=== PATIENT | male | born 1980 | race Two or more races ===

== ENCOUNTER 2019-08-11 07:48 | Emergency (ER) | payer OTHER ==
[~2019-08-11] VITALS: Ht 170.2 cm; Wt 95.3 kg
[2019-08-11] MEDS ORDERED: ENALAPRIL MALEAT5 MG (09:32)
[2019-08-11] MEDS ORDERED: AMOX-CLAV 875-1 EACH PO (10:39)
[2019-08-11] MEDS ORDERED: INTESTINEX680 M1 PO (10:39)
== END 2019-08-11 11:09 | disposition home or self-care (01) ==
LOC: ER 07:48
DX: S61.250A Open bite of right index finger without damage to nail, initial encounter (principal); L03.011 Cellulitis of right finger; W54.0XXA Bitten by dog, initial encounter; Y93.89 Activity, other specified; Y92.89 Other specified places as the place of occurrence of the external cause; Y99.8 Other external cause status

== ENCOUNTER 2020-01-24 07:20 | Emergency (ER) | payer OTHER ==
[~2020-01-24] VITALS: Ht 170.2 cm; Wt 90.7 kg
[~2020-01-24 07:20] MED LIST: AMOX-CLAV 875-1 EACH PO; ENALAPRIL MALEAT5 MG; INTESTINEX680 M1 PO
[2020-01-24] MEDS ORDERED: AMLODIPINE-OLM1 EAC2 (07:30)
[2020-01-24] MEDS ORDERED: ACETAMINOPHEN650 M2 PO (08:50)
[2020-01-24] MEDS ORDERED: CORTISPORIN EAR10 M1 OT (08:50)
== END 2020-01-24 08:59 | disposition home or self-care (01) ==
LOC: ER 07:20
DX: H60.8X2 Other otitis externa, left ear (principal)